=== PATIENT | male | born 1960 | race African-American/Black ===

== ENCOUNTER 2023-10-17 15:36 | Emergency (ER) | payer BC, SELFPAY ==
[2023-10-17 15:56] VITALS: BP 163/99
--- NOTE | 2023-10-17 17:14 | ED.GENMED ---
History of Present Illness
General
Chief Complaint: DVT/Possible Blood Clot
Time Seen by Provider: 10/17/23 16:26
Travel History
Have you had any contact with someone who has COVID-19?: No
Do you have any symptoms of coronavirus? Fever > 100 degrees, chills, cough, shortness of breath, sore throat, loss of taste or smell, muscle aches, or headache?: No
History of Present Illness
History of Present Illness:
62-year-old male with history of hypertension and hyperlipidemia presents to the emergency department for evaluation of left popliteal discomfort ongoing for the past several days. States it began abruptly when he was stepping out of his work
vehicle. 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 Pain radiates from the proximal calf to the thigh. No history of DVT. Denies any leg swelling
Past History
Past History
ED Past Medical History: HTN and Hypercholesterolemia
Patient has exhibited threatening behavior?: No
Social History
Tobacco: Non-smoker
Personal:
Living: with family
Employment: Employed
Review of Systems
Review of Systems
Allergies reviewed?: Yes
All Other Systems: ROS reviewed and negative except as documented in HPI and ROS
Phy Exam
Physical Exam
Physical Exam:
GEN: Well appearing, NAD, WDWN
HEENT: Oral mucosa moist, no scleral icterus
Cardiac: Regular rate
Lung: No respiratory distress, no tachypnea
MSK: No gross deformity or injuries. No lower extremity edema. Tenderness to the popliteal space with palpable swelling. Normal left knee range of motion
Skin: Good color, no pallor or jaundice, no rashes
Neuro: AO x3, moves all extremities freely
Psych: Calm, cooperative
Course
Orders/Labs/Results
Orders:
Orders
10/17/23 16:01
US Legs, Left [US Periph Venous LOWER Ext LT] Urgent
Comment:
Reason For Exam: left calf pain
Vital Signs
Initial and Last Documented VS:
Initial Vital Signs
Temp Pulse Resp BP Pulse Ox
99.4 F 83 20 163/99 97
10/17/23 15:56 10/17/23 15:56 10/17/23 15:56 10/17/23 15:56 10/17/23 15:56
Last Documented Vital Signs
Temp Pulse Resp BP Pulse Ox
99.4 F 83 20 163/99 99
10/17/23 15:56 10/17/23 15:56 10/17/23 15:56 10/17/23 15:56 10/17/23 17:16
MDM/Problems Addressed
MDM/Problems Addressed:
Ultrasound rules out DVT, reveals Ho's cyst. Discussed supportive care, recommend outpatient orthopedic follow-up
*Critical Care Note
Total Time (30-74mins, 75-104mins- exclusive of procedures): Not Applicable
ED Attending Note
-
Portions of this chart may have been created with voice recognition software.� Occasional wrong word or��sound alike� substitutions may have occurred due to the inherent limitations of voice recognition software.
Discharge Plan
Departure
Patient Disposition: Home (Routine Discharge)
Date of Disposition: 10/17/23
Time of Disposition: 17:14
Patient with high blood pressure during this ER visit?: No
Discharge Problem:
Synovial cyst of left popliteal space
Instructions: Ho's Cyst (DC)
Prescriptions:
New
diclofenac sodium 75 mg tablet,delayed release (DR/EC)
75 mg PO BID Qty: 30 0RF
No Action
cyclobenzaprine 10 MG tablet
10 mg PO TIDPRN PRN (Reason: MUSCLE SPASM/TIGHTNESS) Qty: 20 0RF
naproxen 500 MG tablet
500 mg PO BID Qty: 30 0RF
Rx Instructions:
Take with food.
naproxen 500 MG tablet
500 mg PO BID Qty: 30 0RF
Rx Instructions:
Take with food.
prednisone 10 MG tablet
10 mg PO .TAPER Qty: 30 0RF
Rx Instructions:
Take 40mg daily x3days, 30mg daily x3days, 20mg daily x3days, 10mg daily x3days.
cephalexin 500 MG capsule
500 mg PO QID Qty: 40 0RF
sulfamethoxazole-trimethoprim 1 TABLET tablet
1 tab PO BID Qty: 20 0RF
prednisone 10 mg Tablet
See Rx Instructions .ROUTE .COMPLEX Qty: 30 0RF
Rx Instructions:
Take By Mouth:
40 mg daily x3 days, 30 mg daily x3 days,
20 mg daily x3 days, 10 mg daily x3 days.
Interventions
Interventions:
*Risk Screen - Suicide Last Done: 10/17/23 17:16
*General Assessment Last Done: 10/17/23 17:16
*Neglect/Abuse Screening Last Done: 10/17/23 17:16
ED- Fall Risk Assessment Last Done: 10/17/23 17:16
*ED COVID-19 Vaccine History Last Done: 10/17/23 17:16
*Nursing Disposition Last Done: 10/17/23 17:18
ED- Cardiac Assessment Last Done: 10/17/23 17:16
ED- Pulmonary Assessment Last Done: 10/17/23 17:16
ED-Peripheral Vascular Assessment Last Done: 10/17/23 17:16
ED-Skin Assessment Last Done: 10/17/23 17:16
Discharge Date and Time
Discharge Date/Time: 10/17/23 17:30
Print Language: YI
[2023-10-17 17:16] VITALS: BMI 26.9
== END 2023-10-17 17:30 | disposition home or self-care (01) ==
LOC: EMR 15:36
PROVIDERS: EMERGENCY PHYSICIAN Student in an Organized Health Care Education/Training Program; FAMILY PHYSICIAN Internal Medicine
DX: M71.22 Synovial cyst of popliteal space [Baker], left knee (principal); I10 Essential (primary) hypertension; E78.00 Pure hypercholesterolemia, unspecified
CPT/HCPCS: 99284; 93971